=== PATIENT | male | born 1945 | race Caucasian/White ===

== ENCOUNTER → 2022-05-30 | Outpatient (CLI) | payer MEDICARE, SELFPAY ==
[2022-05-30 09:59] LABS: CRP < 2.90 mg/L (0.0-3.0); Free T3 3.3 pg/mL (2.18-3.98); LDH 211 U/L (87-241); T4 Free Direct 1.27 ng/dL (0.76-1.46); Thyroid Stim Hormone (TSH) 1.82 uIU/mL (0.358-3.74)
[2022-05-30 10:03] LABS: Absolute Lymphocyte Count 1.86 X10^3/uL (0.83-4.51); Absolute Neutrophil Count 3.2 X10^3/uL (2.0-7.7); Basophil# 0.06 X10^3/uL; Eosinophils% 5.1 % (0-5); Hematocrit 43.1 % (40-54); Hemoglobin 14.9 g/dL (13.0-16.5); Lymphocyte # 1.86 X10^3/ul (0.83-4.51); Lymphocyte % 31.5 % (19-41); Mean Corp Hgb Conc 34.6 g/dL (32-36); Mean Corpuscular Hgb 31.6 pg (27.0-32.0); Mean Corpuscular Volume 91.5 fL (80-94); Mean Platelet Vol. 10.9 fl (6.2-12.0); Monocyte# 0.46 X10^3/uL; Monocyte% 7.8 % (0-10); NRBC Flagged by Analyzer 0 % (0-5); Neutrophil # 3.21 X10^3/uL (2.7-7.7); Neutrophil % 54.4 % (47-70); Platelet Count 246 K/mm3 (150-450); RBC Distribution Width CV 12.2 % (11.6-14.6); RBC Distribution Width SD 40.7 fl (35.1-43.9); Red Blood Count 4.71 M/mm3 (4.6-6.2); White Blood Count 5.9 K/mm3 (4.4-11.0)
[2022-05-30 10:09] LABS: Erythrocyte Sedimentation Rate 24 mm/hr (0-20)
[2022-05-31 15:08] LABS: Anti-Centromere B Ab <0.2 AI (0.0-0.9); Anti-Chromatin <0.2 AI (0.0-0.9); Anti-Jo <0.2 AI (0.0-0.9); Anti-Scleroderma-70 AB <0.2 AI (0.0-0.9); RNP Ab 0.6 AI (0.0-0.9); SJOGREN'S Anti-SS-A test < 0.2 AI (0.0-0.9); SJOGREN'S Anti-SS-B test < 0.2 AI (0.0-0.9); Smith Ab <0.2 AI (0.0-0.9)
[2022-05-31 16:09] LABS: Endomysial Antibody IgA Negative (Negative)
[2022-05-31 16:28] LABS: Anti-dsDNA Ab <1 IU/mL (0-9)
[2022-05-31 16:30] LABS: Immunoglobulin A 368 mg/dL (61-437); t-Transglutaminase IgA <2 U/mL (0-3)
[2022-06-05 12:08] LABS: Albumin 3.8 g/dL (2.9-4.4); Alpha-1-Globulins 0.2 g/dL (0.0-0.4); Alpha-2-Globulins 0.9 g/dL (0.4-1.0); Cytoplasmic Ab (C-ANCA) <1:20 titer (Neg:<1:20); Immunoglobulin A 395 mg/dL (61-437); Immunoglobulin G 1105 mg/dL (603-1613); Immunoglobulin M 104 mg/dL (15-143); PROEL- TOTAL PROTEIN 7.3 g/dL (6.0-8.5)
[2022-06-07 13:37] LABS: Immunoglobulin E 685 IU/mL (6-495); Perinuclear Ab (P-ANCA) <1:20 titer (Neg:<1:20)
== END | disposition home or self-care (01) ==
PROVIDERS: PCP Physician Assistant; Referring Provider Internal Medicine Gastroenterology; Visit Provider Internal Medicine Gastroenterology
DX: R19.7 Diarrhea, unspecified (principal)
CPT/HCPCS: 36415; 82784; 82785; 83516; 83615; 84165; 84439; 84443; 84481; 85025; 85652; 86140; 86225; 86235; 86255; 86256; 86334

== ENCOUNTER → 2022-05-31 | Outpatient (CLI) | payer MEDICARE, SELFPAY ==
[2022-06-05 13:41] LABS: Pancreatic Elastase, Fecal > 500 (>200)
[2022-06-09 10:29] LABS: Calprotectin, Stool 134 ug/g (0-120); Fats, Neutral Normal (.); Fats, Total Normal (.)
== END | disposition home or self-care (01) ==
LOC: LAB 15:20
PROVIDERS: PCP Physician Assistant; Referring Provider Internal Medicine Gastroenterology; Visit Provider Internal Medicine Gastroenterology
DX: R19.7 Diarrhea, unspecified (principal); K58.0 Irritable bowel syndrome with diarrhea
CPT/HCPCS: 82653; 82705; 83630; 83993; 87493; 87506

== ENCOUNTER → 2022-06-15 | Outpatient (CLI) | payer MEDICARE, SELFPAY | END | disposition home or self-care (01) | PROVIDERS: PCP Physician Assistant; Visit Provider Internal Medicine Gastroenterology | DX: R19.7 Diarrhea, unspecified (principal) | CPT/HCPCS: 36415 ==

== ENCOUNTER → 2022-06-22 | Outpatient (CLI) | payer MEDICARE, SELFPAY ==
--- NOTE | 2022-06-22 08:14 | CT_ITS ---
STUDY: CT ABDOMEN AND PELVIS WITH CONTRAST REASON FOR EXAM: Male, 76 years old. Diarrhea RADIATION DOSAGE (If Supplied By Facility): CTDIvol = ( 21.42 ) mGy, DLP = ( 1173.85 ) mGycm TECHNIQUE: Transaxial images were obtained from the dome of the diaphragm to the symphysis pubis with oral contrast. Oral and amp; IV Readi-CAT and amp; 100mL Isovue-300 was administered. Sagittal and coronal images were reconstructed. Individualized dose optimization techniques were used for this CT. COMPARISON: None. FINDINGS: The visualized lung bases are unremarkable. The visualized portions of the heart are within normal limits. Liver is unremarkable aside from scattered simple cysts. No suspicious solid lesion. Normal gallbladder and extrahepatic biliary system. Normal spleen. Normal pancreas. Normal bilateral adrenal glands. No obstructive uropathy, or suspicious solid renal lesion, simple 1.5 cm right renal cyst. Normal visualized stomach. Normal small intestine. Normal colon. The appendix is visualized and appears normal. There is a normal appendix seen on coronal recon images 57 through 63 There is diffuse atherosclerotic calcification of the abdominal aorta, without a demonstrated aneurysm. Normal inferior vena cava. Normal retroperitoneum. Normal urinary bladder. Prostate is markedly enlarged and impinging upon the inferior bladder measuring 7.16 x 7.02 x 5.38 cm. Normal abdominal wall. There are diffuse degenerative changes of the visualized lumbar spine, and pelvis. Replaced right hip joint free of complication CT/Abdomen/Pelvis WITH Contrast IMPRESSION: No suspicious solid organ abnormality, simple hepatic and right renal cysts, no specific follow-up needed. No free intraperitoneal fluid, air, or suspicious adenopathy, normal appendix visualized Diffuse prostate enlargement impinging upon the inferior bladder and likely causing mild circumferential bladder wall thickening Electronically Signed: Aden Field MD at 10:23 EDT ,
[2022-06-22 08:46] LABS: CREATININE FINGERSTICK 0.9 mg/dL (0.70-1.30); EGFR FINGERSTICK > 60.0000 mL/min (>60)
== END | disposition home or self-care (01) ==
LOC: CT 08:13
PROVIDERS: PCP Physician Assistant; Referring Provider Internal Medicine Gastroenterology; Visit Provider Internal Medicine Gastroenterology
DX: R19.7 Diarrhea, unspecified (principal)
CPT/HCPCS: 74177; Q9967

== ENCOUNTER → 2022-08-28 | Outpatient (CLI) | payer MEDICARE, SELFPAY ==
[2022-08-28 09:56] LABS: Absolute Lymphocyte Count 1.87 X10^3/uL (0.83-4.51); Absolute Neutrophil Count 4.6 X10^3/uL (2.0-7.7); Basophil# 0.04 X10^3/uL; Basophil% 0.5 % (0-1); Eosinophil# 0.23 X10^3/uL; Eosinophils% 3.1 % (0-5); Hematocrit 43.8 % (40-54); Hemoglobin 14.4 g/dL (13.0-16.5); Lymphocyte # 1.87 X10^3/ul (0.83-4.51); Lymphocyte % 25.4 % (19-41); Mean Corp Hgb Conc 32.9 g/dL (32-36); Mean Corpuscular Hgb 30.6 pg (27.0-32.0); Mean Corpuscular Volume 93.2 fL (80-94); Mean Platelet Vol. 10.4 fl (6.2-12.0); Monocyte# 0.59 X10^3/uL; NRBC Flagged by Analyzer 0 % (0-5); Neutrophil # 4.61 X10^3/uL (2.7-7.7); Neutrophil % 62.7 % (47-70); Platelet Count 267 K/mm3 (150-450); RBC Distribution Width CV 12.2 % (11.6-14.6); White Blood Count 7.4 K/mm3 (4.4-11.0)
[2022-08-28 10:14] LABS: Erythrocyte Sedimentation Rate 39 mm/hr (0-20)
[2022-08-28 10:23] LABS: ALB/GLOB Ratio 0.8 RATIO (0.9-2.4); AST(SGOT) 35 U/L (15-37); Alanine Aminotransfer ALT/SGPT 45 U/L (16-61); Albumin, Serum 3.5 g/dL (3.2-5.0); Alkaline Phosphatase 70 U/L (45-117); Anion Gap 4 (5-15); BUN 15 mg/dL (7-18); BUN/Creat Ratio 15.4 RATIO (10-20); Calcium,Total 8.7 mg/dL (8.5-10.1); Chloride 108 mmol/L (98-107); Creatinine, Serum 0.97 mg/dL (0.70-1.30); EST Glomerular Filtration Rate 79 mL/min (>60); Est Glom Filt Rate - Afr Amer 96 mL/min (>60); Globulin 4.2 g/dL (2.2-4.2); Glucose 111 mg/dL (74-106); Potassium 3.9 mmol/L (3.5-5.1); Protein, Total 7.7 g/dL (6.4-8.2); Sodium Level 139 mmol/L (136-145)
== END | disposition home or self-care (01) ==
PROVIDERS: PCP Physician Assistant; Referring Provider Nurse Practitioner Adult Health; Visit Provider Nurse Practitioner Adult Health
DX: K50.90 Crohn's disease, unspecified, without complications (principal)
CPT/HCPCS: 36415; 80053; 85025; 85652

== ENCOUNTER 2022-11-01 06:45 | Day surgery (SDC) | payer MEDICARE, SELFPAY ==
[2022-11-01] VITALS (7 sets, daily range): BP systolic 98–156; BP diastolic 65–70; PULSE 63–76; RESP 16–18; TEMP 36–36.4; O2SAT 92–97; BMI 30.8
[2022-11-01] MEDS: Lactated Ringers 1,000 ML 15 ML IV (07:08)
--- NOTE | 2022-11-01 07:48 | PCM.HP.BLA ---
History and Physical Date of Admission: 11/01/22 ?76 M who presents to the office today for f/u diarrhea, newly diagnosed Crohn's disease. Accompanied by his Lindsay. Urgent diarrhea for more than a year. No nocturnal diarrhea. No melena or hematochezia. No associated pain or cramps. Diarrhea first thing in the morning, several bouts in the morning, and occas after eating. No unintentional weight loss. He is taking azathioprine 50 mg daily; had epigastric abdominal pain when he took 100 mg daily. Diarrhea pretty well controlled on the 50 mg dose. No longer needs Pepto Bismol. No prior EGD/colonoscopy. Has had negative Cologuard tests. 05/2022 ESR 24 H; IgE 685 H; normal CBC/LDH/CRP/TSH/SPEP/EDGAR/ANCA/celiac/fecal fats/fecal elastase 06/2022 workup: elevated stool calprotectin; negative enteric pathogens/C diff/lactoferrin; Suggestive of Crohn's Disease. Pattern is not conclusive for ? disease behavior risk stratification. 06/2022 CT/Abdomen/Pelvis WITH Contrast IMPRESSION: No suspicious solid organ abnormality, simple hepatic and right renal cysts, no specific follow-up needed. No free intraperitoneal fluid, air, or suspicious adenopathy, normal appendix visualized Diffuse prostate enlargement impinging upon the inferior bladder and likely causing mild circumferential bladder wall thickening ROS Const Constitutional: No fatigue ENT ENT: No difficulty swallowing Cardio Cardiology: Positive for leg pain with exertion Gastro GI: Positive for abdominal pain, change in bowel habits and diarrhea; No belching, bloating, change in stool character, coffee ground emesis, constipation, cramping, heartburn, difficulty swallowing, feeling full early, excessive flatus, incontinent of stools, Vomiting blood/hematemesis, Blood in stool, loose stools, Black,tarry stools, nausea/dyspepsia, pain with swallowing, vomiting or other Musc Musculoskeletal: Positive for joint pain, back pain, muscle cramps, muscle weakness, stiffness, Arthritis, restless legs and leg pain with exertion Skin Skin: No yellowing of the eye or itchy eyes Neuro Neurology: Positive for restless legs Psych Psychiatric: No anxiety and Positive for depression Endo Endocrine: No fatigue Aller/Imm Allergy/Immunologic: No itchy eyes Kervin/Lymp Hematologic/Lymphatic: No easy bleeding or easy bruising Exam Const General: cooperative and comfortable Nutritional Appearance: overweight Orientation: alert, awake and oriented x3 HENMT Head: normal to inspection Eyes Sclera: sclerae normal Resp Effort & Inspection: normal respiratory effort Skin General: no jaundice Neuro Gait: normal gait Quality Reporting Tobacco Screening ([facility] 138) Smoking Status: Former smoker Assessment and Plan Assessment and Plan (1) Crohn disease: ?Status:?Acute ?Plan: 76 yr old male with recent diagnosis Crohn's disease. I reviewed the biochemical w/u with pt and his . Dr Maribell started him on azathioprine, he tolerates 50 mg daily but had epigastric pain on 100 mg. Diarrhea has improved. Update labs today; I'll call them with lab results. He is scheduled for EGD and colonoscopy plus capsule endoscopy to be placed then f/u in office 2 wks after for discussion of biopsy results ? ? ? Orders: Orders Comprehensive Metabolic Profil 08/28/22 K50.90 - Crohn's disease, unspecified, without complications ? CBC W/Diff, Automated 08/28/22 K50.90 - Crohn's disease, unspecified, without complications ? Erythrocyte Sed Rate 08/28/22 K50.90 - Crohn's disease, unspecified, without complications ? I have examined the patient and the H&P has been reviewed. There are no clinical changes since date of exam.
--- NOTE | 2022-11-01 08:00 | COLBX_PTH ---
PATIENT: JIE HOLDER LOC: EN U#:[id number] AGE/SX: 76/M ROOM: RE11/01/[address]: Dr. Wally Reyna DO : 1945 BED: DIS: 11/01/2022 SPEC #: [id number] RECD: 11/01/22 11:31 STATUS: ELENA DANII #: [id number] KEITH: 11/01/22 08:[address]: Wally Reyna DEPT: SURGICAL PATHOLOGY RECD BY: Bhavna Dwyer ENTERED: 11/01/22 13:19 SP TYPE: COLON BX OTHR DR: MILKA Nunez Tissues: A - Cecum, NOS B - Ileum, NOS C - Transverse colon D - COLON BIOPSY E - Sigmoid colon biopsy Procedures: Surgery Specimen Level IV HEADER OPERATION: Colonoscopy, [place] [place] pill cam placement, biopsy PRE-OP DIAGNOSIS: Crohn?s disease TISSUE SUBMITTED: A ? Cecal polyp biopsy, B ? Terminal ileum biopsy, C ? Transverse colon polyp biopsy, D ? Splenic flexure polyp biopsy, E ? Sigmoid polyp biopsy MICROSCOPIC DIAGNOSIS A. Cecal polyp, biopsy: Tubular adenoma. B. Terminal ileum, biopsy: No pathologic change. C. Transverse colon polyp, biopsy: Polypoid fragment of benign colonic mucosa. See comment. D. Colonic polyp at splenic flexure, biopsy: Tubular adenoma. E. Sigmoid colon polyp, biopsy: Consistent with inflammatory polyp. AM:germain 11/02/2022 COMMENT C. Neither hyperplastic nor adenomatous change is identified. Clinical correlation is suggested. MICROSCOPIC DESCRIPTION Slides are reviewed. GROSS DESCRIPTION A - Received in fixative is one container labeled with the patient's name and designated cecal polyp biopsy. The specimen consists of one irregular fragment of light delacruz soft tissue that measures 0.3 x 0.3 x 0.1 cm. The specimen is totally submitted in one cassette. B - Received in fixative is one container labeled with the patient's name and designated terminal ileum. The specimen consists of one irregular fragment of light delacruz soft tissue that measures 0.3 x 0.3 x 0.1 cm. The specimen is totally submitted in one cassette. C - Received in fixative is one container labeled with the patient's name and designated transverse colon polyp biopsy. The specimen consists of one irregular fragment of light delacruz soft tissue that measures 0.3 x 0.3 x 0.1 cm. The specimen is totally submitted in one cassette. D - Received in fixative is one container labeled with the patient's name and designated splenic flexure polyp biopsy. The specimen consists of one irregular fragment of light delacruz soft tissue that measures 0.4 x 0.4 x 0.1 cm. The specimen is totally submitted in one cassette. E - Received in fixative is one container labeled with the patient's name and designated sigmoid polyp biopsy. The specimen consists of one irregular fragment of light delacruz soft tissue that measures 0.3 x 0.3 x 0.1 cm. The specimen is totally submitted in one cassette. / SJ:rg 11/01/2022 TC:5 CPT: 92755 x5
--- NOTE | 2022-11-01 08:39 | OP.EGD_ITS ---
Patient Name: Clark De Leon Procedure Date: 11/01/2022 7:49 AM Date of : 1945 Age: 76 Procedure: Upper GI endoscopy Indications: Epigastric abdominal pain Providers: Wally Reyna DO Referring MD: Wally Reyna DO Medicines: Monitored Anesthesia Care Patient Profile: This is a 76 year old male. Refer to note in patient chart for documentation of history and physical. Patient has symptoms. Complications: No immediate complications. Procedure: Pre-Anesthesia Assessment: - Prior to the procedure, a History and Physical was performed, and patient medications and allergies were reviewed. The risks and benefits of the procedure and the sedation options and risks were discussed with the patient. All questions were answered and informed consent was obtained. Patient identification and proposed procedure were verified by the physician in the pre-procedure area. Mental Status Examination: alert and oriented. Airway Examination: normal oropharyngeal airway and neck mobility. Respiratory Examination: clear to auscultation. CV Examination: normal. Prophylactic Antibiotics: The patient does not require prophylactic antibiotics. Prior Anticoagulants: The patient has taken no previous anticoagulant or antiplatelet agents. ASA Grade Assessment: II - A patient with mild systemic disease. After reviewing the risks and benefits, the patient was deemed in satisfactory condition to undergo the procedure. The anesthesia plan was to use monitored anesthesia care (MAC). Immediately prior to administration of medications, the patient was re-assessed for adequacy to receive sedatives. The heart rate, respiratory rate, oxygen saturations, blood pressure, adequacy of pulmonary ventilation, and response to care were monitored throughout the procedure. The physical status of the patient was re-assessed after the procedure. After obtaining informed consent, the endoscope was passed under direct vision. Throughout the procedure, the patient's blood pressure, pulse, and oxygen saturations were monitored continuously. The gastroscope was introduced through the mouth, and advanced to the second part of duodenum. The upper GI endoscopy was accomplished without difficulty. The patient tolerated the procedure well. Scope In: 8:05:24 AM Scope Out: 8:09:21 AM Total Procedure Duration Time 0 hours 3 minutes 57 seconds Findings: The examined esophagus was normal. A medium-sized hiatal hernia was present. No gross lesions were noted in the second portion of the duodenum. Using the endoscope, the video capsule enteroscope was advanced into the first portion of the duodenum. The video capsule was positioned 40 cm from the incisors. Impression: - Normal esophagus. - Medium-sized hiatal hernia. - No gross lesions in the second portion of the duodenum. - Successful completion of the Video Capsule Enteroscope placement. - No specimens collected. Recommendation: - Discharge patient to home. - Resume previous diet. - Continue present medications. Procedure Code(s): --- Professional --- 26036, Esophagogastroduodenoscopy, flexible, transoral; diagnostic, including collection of specimen(s) by brushing or washing, when performed (separate procedure) CPT copyright 2017 [employer]. All rights reserved. The codes documented in this report are preliminary and upon web operations lead review may be revised to meet current compliance requirements. Wally Reyna DO 11/01/2022 8:38:52 AM This report has been signed electronically. Number of Addenda: 0 Note Initiated On: 11/01/2022 7:49 AM
--- NOTE | 2022-11-01 08:39 | OP.CCLET_ITS ---
11/01/2022 Aaron Nunez Re : Upper GI endoscopy procedure for Clark Palafoxr Yumiko This procedure was performed on October. My impressions and recommendations are as follows: Impressions : - Normal esophagus. - Medium-sized hiatal hernia. - No gross lesions in the second portion of the duodenum. - Successful completion of the Video Capsule Enteroscope placement. - No specimens collected. Recommendations : - Discharge patient to home. - Resume previous diet. - Continue present medications. My findings are described in the full procedure note, which is enclosed. If I can be of further assistance, please feel free to contact me at . Sincerely, Wally Reyna, 11/01/2022 8:38:52 AM This report has been signed electronically.
--- NOTE | 2022-11-01 08:44 | OP.CCLET_ITS ---
11/01/2022 Aaron Nunez Re : Colonoscopy procedure for Clark De Leon Dear Yumiko This procedure was performed on October. My impressions and recommendations are as follows: Impressions : - Diverticulosis in the recto-sigmoid colon, in the sigmoid colon and in the descending colon. - Four 1 to 2 mm polyps in the sigmoid colon, at the splenic flexure, in the transverse colon and in the cecum, removed with a cold snare. Resected and retrieved. - Congested mucosa in the terminal ileum. Biopsied. Recommendations : - Discharge patient to home. - Resume previous diet. - Continue present medications. - Await pathology results. - Repeat colonoscopy in 2 years for surveillance. My findings are described in the full procedure note, which is enclosed. If I can be of further assistance, please feel free to contact me at . Sincerely, Wally Reyna, 11/01/2022 8:43:49 AM This report has been signed electronically.
--- NOTE | 2022-11-01 08:44 | OP.COLON_ITS ---
Patient Name: Clark De Leon Procedure Date: 11/01/2022 8:09 AM Date of : 1945 Age: 76 Procedure: Colonoscopy Indications: Chronic diarrhea, Suspected Crohn's disease of the small bowel Providers: Wally Reyna DO Referring MD: Wally Reyna DO Medicines: Monitored Anesthesia Care Patient Profile: This is a 76 year old male. Refer to note in patient chart for documentation of history and physical. Patient has symptoms. Last Colonoscopy: date unknown. Unable to locate last colonoscopy report. Complications: No immediate complications. Procedure: Pre-Anesthesia Assessment: - Prior to the procedure, a History and Physical was performed, and patient medications and allergies were reviewed. The risks and benefits of the procedure and the sedation options and risks were discussed with the patient. All questions were answered and informed consent was obtained. Patient identification and proposed procedure were verified by the physician in the pre-procedure area. Mental Status Examination: alert and oriented. Airway Examination: normal oropharyngeal airway and neck mobility. Respiratory Examination: clear to auscultation. CV Examination: normal. Prophylactic Antibiotics: The patient does not require prophylactic antibiotics. Prior Anticoagulants: The patient has taken no previous anticoagulant or antiplatelet agents. ASA Grade Assessment: II - A patient with mild systemic disease. After reviewing the risks and benefits, the patient was deemed in satisfactory condition to undergo the procedure. The anesthesia plan was to use monitored anesthesia care (MAC). Immediately prior to administration of medications, the patient was re-assessed for adequacy to receive sedatives. The heart rate, respiratory rate, oxygen saturations, blood pressure, adequacy of pulmonary ventilation, and response to care were monitored throughout the procedure. The physical status of the patient was re-assessed after the procedure. After I obtained informed consent, the scope was passed under direct vision. Throughout the procedure, the patient's blood pressure, pulse, and oxygen saturations were monitored continuously. The Colonoscope was introduced through the anus and advanced to the terminal ileum. The colonoscopy was performed without difficulty. The patient tolerated the procedure well. The quality of the bowel preparation was good. Scope In: 8:14:01 AM Scope Withdrawal Time 0 hours 10 minutes 10 seconds Scope Out: 8:26:48 AM Total Procedure Duration Time 0 hours 12 minutes 47 seconds Findings: The perianal and digital rectal examinations were normal. A few medium-mouthed diverticula were found in the recto-sigmoid colon, sigmoid colon and descending colon. Four sessile polyps were found in the sigmoid colon, splenic flexure, transverse colon and cecum. The polyps were 1 to 2 mm in size. These polyps were removed with a cold snare. Resection and retrieval were complete. Verification of patient identification for the specimen was done. Estimated blood loss was minimal. A patchy area of the terminal ileum was congested. Biopsies were taken with a cold forceps for histology. Verification of patient identification for the specimen was done. Estimated blood loss was minimal. Non-bleeding internal hemorrhoids were found during retroflexion. The hemorrhoids were Grade I (internal hemorrhoids that do not prolapse). Impression: - Diverticulosis in the recto-sigmoid colon, in the sigmoid colon and in the descending colon. - Four 1 to 2 mm polyps in the sigmoid colon, at the splenic flexure, in the transverse colon and in the cecum, removed with a cold snare. Resected and retrieved. - Congested mucosa in the terminal ileum. Biopsied. Recommendation: - Discharge patient to home. - Resume previous diet. - Continue present medications. - Await pathology results. - Repeat colonoscopy in 2 years for surveillance. Procedure Code(s): --- Professional --- 65517, Colonoscopy, flexible; with removal of tumor(s), polyp(s), or other lesion(s) by snare technique 41231, 59, Colonoscopy, flexible; with biopsy, single or multiple CPT copyright 2017 [place] [employer]. All rights reserved. The codes documented in this report are preliminary and upon it solutions sales consultant review may be revised to meet current compliance requirements. Wally Reyna DO 11/01/2022 8:43:49 AM This report has been signed electronically. Number of Addenda: 0 Note Initiated On: 11/01/2022 8:09 AM
== END 2022-11-01 09:36 | disposition home or self-care (01) ==
LOC: EN 06:48 → AC 06:48
PROVIDERS: PCP Physician Assistant; Referring Provider Physician Assistant; Visit Provider Internal Medicine Gastroenterology
PROC: 0DJD8ZZ Inspection of Lower Intestinal Tract, Via Natural or Artificial Opening Endoscopic (ICD-10-PCS; CPT 45378; principal; 2022-11-01 07:55)
DX: K50.90 Crohn's disease, unspecified, without complications (principal); K44.9 Diaphragmatic hernia without obstruction or gangrene; K64.0 First degree hemorrhoids; K21.9 Gastro-esophageal reflux disease without esophagitis; K57.30 Diverticulosis of large intestine without perforation or abscess without bleeding; D12.0 Benign neoplasm of cecum; D12.3 Benign neoplasm of transverse colon; Z87.891 Personal history of nicotine dependence; I10 Essential (primary) hypertension; Z79.899 Other long term (current) drug therapy
CPT/HCPCS: 45385; 45380; 43235; 88305; J7120; J2405

== ENCOUNTER → 2022-11-16 | Outpatient (CLI) | payer MEDICARE, SELFPAY ==
[2022-11-16 16:05] LABS: Absolute Lymphocyte Count 1.95 X10^3/uL (0.83-4.51); Absolute Neutrophil Count 3.2 X10^3/uL (2.0-7.7); Basophil# 0.05 X10^3/uL; Basophil% 0.9 % (0-1); Eosinophil# 0.18 X10^3/uL; Eosinophils% 3.1 % (0-5); Hematocrit 43.8 % (40-54); Hemoglobin 14.8 g/dL (13.0-16.5); Lymphocyte # 1.95 X10^3/ul (0.83-4.51); Lymphocyte % 33.7 % (19-41); Mean Corp Hgb Conc 33.8 g/dL (32-36); Mean Corpuscular Hgb 31.6 pg (27.0-32.0); Mean Corpuscular Volume 93.4 fL (80-94); Mean Platelet Vol. 10.5 fl (6.2-12.0); Monocyte# 0.43 X10^3/uL; Monocyte% 7.4 % (0-10); NRBC Flagged by Analyzer 0 % (0-5); Neutrophil # 3.16 X10^3/uL (2.7-7.7); Neutrophil % 54.6 % (47-70); Platelet Count 227 K/mm3 (150-450); RBC Distribution Width CV 12.4 % (11.6-14.6); RBC Distribution Width SD 42.3 fl (35.1-43.9); Red Blood Count 4.69 M/mm3 (4.6-6.2); White Blood Count 5.8 K/mm3 (4.4-11.0)
[2022-11-16 16:39] LABS: Erythrocyte Sedimentation Rate 7 mm/hr (0-20)
[2022-11-16 17:12] LABS: AST(SGOT) 31 U/L (15-37); Alanine Aminotransfer ALT/SGPT 43 U/L (16-61); Albumin, Serum 3.6 g/dL (3.2-5.0); Alkaline Phosphatase 68 U/L (45-117); Anion Gap 4 (5-15); BUN 16 mg/dL (7-18); BUN/Creat Ratio 16.8 RATIO (10-20); CRP < 2.90 mg/L (0.0-3.0); Chloride 108 mmol/L (98-107); Creatinine, Serum 0.95 mg/dL (0.70-1.30); EST Glomerular Filtration Rate 81 mL/min (>60); Est Glom Filt Rate - Afr Amer 99 mL/min (>60); Globulin 3.7 g/dL (2.2-4.2); Glucose 88 mg/dL (74-106); Potassium 3.5 mmol/L (3.5-5.1); Protein, Total 7.3 g/dL (6.4-8.2); Sodium Level 140 mmol/L (136-145)
== END | disposition home or self-care (01) ==
LOC: LAB 14:55
PROVIDERS: PCP Physician Assistant; Referring Provider Nurse Practitioner Adult Health; Visit Provider Nurse Practitioner Adult Health
DX: K50.90 Crohn's disease, unspecified, without complications (principal)
CPT/HCPCS: 36415; 80053; 85025; 85652; 86140

== ENCOUNTER → 2022-11-20 | Outpatient (CLI) | payer MEDICARE, SELFPAY ==
[2022-11-24 08:59] LABS: Calprotectin, Stool 71 ug/g (0-120)
== END | disposition home or self-care (01) ==
LOC: LABSPEC 10:21
PROVIDERS: PCP Physician Assistant; Referring Provider Nurse Practitioner Adult Health; Visit Provider Nurse Practitioner Adult Health
DX: K50.90 Crohn's disease, unspecified, without complications (principal)
CPT/HCPCS: 83630; 83993

== ENCOUNTER → 2023-05-23 | Outpatient (CLI) | payer MEDICARE, SELFPAY ==
[2023-05-23 17:05] LABS: Absolute Lymphocyte Count 1.93 X10^3/uL (0.83-4.51); Absolute Neutrophil Count 3.6 X10^3/uL (2.0-7.7); Basophil# 0.05 X10^3/uL; Basophil% 0.8 % (0-1); Eosinophils% 3.2 % (0-5); Hematocrit 41.7 % (40-54); Hemoglobin 14.3 g/dL (13.0-16.5); Lymphocyte # 1.93 X10^3/ul (0.83-4.51); Lymphocyte % 30.5 % (19-41); Mean Corp Hgb Conc 34.3 g/dL (32-36); Mean Corpuscular Hgb 31.3 pg (27.0-32.0); Mean Corpuscular Volume 91.2 fL (80-94); Mean Platelet Vol. 10.5 fl (6.2-12.0); Monocyte# 0.55 X10^3/uL; Monocyte% 8.7 % (0-10); NRBC Flagged by Analyzer 0 % (0-5); Neutrophil # 3.57 X10^3/uL (2.7-7.7); Neutrophil % 56.5 % (47-70); Platelet Count 260 K/mm3 (150-450); RBC Distribution Width CV 12.8 % (11.6-14.6); RBC Distribution Width SD 42.2 fl (35.1-43.9); Red Blood Count 4.57 M/mm3 (4.6-6.2); White Blood Count 6.3 K/mm3 (4.4-11.0)
[2023-05-23 17:14] LABS: Erythrocyte Sedimentation Rate 28 mm/hr (0-20)
[2023-05-23 17:37] LABS: ALB/GLOB Ratio 0.9 RATIO (0.9-2.4); AST(SGOT) 34 U/L (15-37); Alanine Aminotransfer ALT/SGPT 45 U/L (16-61); Albumin, Serum 3.5 g/dL (3.2-5.0); Alkaline Phosphatase 90 U/L (45-117); Anion Gap 5 (5-15); BUN 14 mg/dL (7-18); BUN/Creat Ratio 15.2 RATIO (10-20); CRP < 2.90 mg/L (0.0-3.0); Calcium,Total 8.5 mg/dL (8.5-10.1); Chloride 111 mmol/L (98-107); Creatinine, Serum 0.92 mg/dL (0.70-1.30); EST Glomerular Filtration Rate 85 mL/min (>60); Est Glom Filt Rate - Afr Amer 102 mL/min (>60); Globulin 3.9 g/dL (2.2-4.2); Glucose 100 mg/dL (74-106); Potassium 3.6 mmol/L (3.5-5.1); Protein, Total 7.4 g/dL (6.4-8.2); Sodium Level 141 mmol/L (136-145)
[2023-05-30 00:07] LABS: Beef <0.10 kU/L (Class 0); Chocolate <0.10 kU/L (Class 0); Corn 0.15 kU/L (Class 0/I); Egg, Whole <0.10 kU/L (Class 0); Milk (Cow) <0.10 kU/L (Class 0); Peanut <0.10 kU/L (Class 0); Pork <0.10 kU/L (Class 0); Soybean 0.19 kU/L (Class 0/I); Wheat 0.16 kU/L (Class 0/I)
== END | disposition home or self-care (01) ==
LOC: LAB 16:23
PROVIDERS: PCP Physician Assistant; Referring Provider Internal Medicine Gastroenterology; Visit Provider Internal Medicine Gastroenterology
DX: K50.90 Crohn's disease, unspecified, without complications (principal)
CPT/HCPCS: 36415; 80053; 85025; 85652; 86003; 86005; 86140

== ENCOUNTER 2024-04-01 08:26 | Observation (INO) | payer MEDICARE, SELFPAY ==
[2024-04-01] VITALS (14 sets, daily range): BP systolic 67–125; BP diastolic 55–91; PULSE 71–95; RESP 16–17; TEMP 35.9–36.8; O2SAT 94–99; BMI 31.2; BMI 31.3
--- NOTE | 2024-04-01 | PROS_PTH ---
PATIENT: JIE HOLDER LOC: MS3 U#:[id number] AGE/SX: 78/M ROOM: CT310 RE04/01/[address]: Dr. Iam Macias MD : 1945 BED: 1 DIS: 04/02/2024 SPEC #: [id number] RECD: 04/01/24 13:15 STATUS: ELENA FOY #: [id number] KEITH: 04/01/24 00:[address]: Iam Macias DEPT: SURGICAL PATHOLOGY RECD BY: Ritchie Almanzar ENTERED: 04/01/24 13:16 SP TYPE: TURP OTHR DR: MILKA Nunez Tissues: Prostate, NOS Procedures: Surgery Specimen Level IV HEADER OPERATION: Transurethral resection prostate PRE-OP DIAGNOSIS: Benign prostatic hyperplasia with lower urinary tract symptoms, other retention of urine, elevated PSA TISSUE SUBMITTED: Prostate chips MICROSCOPIC DIAGNOSIS Prostate, transurethral resection: Benign nodule hyperplasia, glandular and stromal types. Chronic inflammation with focal acute inflammation. AM/ 04/02/2024 MICROSCOPIC DESCRIPTION Slides are reviewed. GROSS DESCRIPTION Received is one container labeled with the patient's name and designated prostate tissue. The specimen consists of multiple irregular fragments of pink-delacruz, rubbery, soft tissue that in aggregate weigh 45.1 gm and measure in aggregate 8.0 x 8.0 x 2.6 cm. Manager Science portions are submitted in ten cassettes. / 04/01/2024 TC:2 CPT: 91476
--- NOTE | 2024-04-01 06:27 | EKG12_ITS ---
Test Reason : PREOP Blood Pressure : / mmHG Vent. Rate : 080 BPM Atrial Rate : 080 BPM P-R Int : 202 ms QRS Dur : 098 ms QT Int : 374 ms P-R-T Axes : 004 -16 -02 degrees QTc Int : 431 ms Normal sinus rhythm Minimal voltage criteria for LVH, may be normal variant ( R in aVL ) Borderline ECG When compared with ECG of 08-FEB-2006 05:54, Fusion complexes are no longer Present Premature ventricular complexes are no longer Present Inverted T waves have replaced nonspecific T wave abnormality in Inferior leads Confirmed by ZACKERY MONCADA, KHRIS ([id number]), manager functional SNEHA ALMARAZ ([id number]) on 04/03/2024 9:42:15 AM Referred By: Iam Macias Confirmed By:NAOMIE VIZCARRA MD
--- NOTE | 2024-04-01 08:28 | PRE.ANES_ITS ---
ASA Classification* ASA Classification ASA Classification: 3 Assessment & Plan Anesthesia* Anesthesia Assessment Anesthesia Assessment: Discussed sedation and/or anesthesia options, risks, benefits, and alternatives with patient/parents/legal guardian/POA. Questions invited. The patient/parents/legal guardian/POA seems to understand and agrees to proceed with anesthesia plan. Reviewed the physical assessment, medical history, allergy history and patient home medications list prior to surgery/procedure/anesthetic and documented any changes. Performed airway and anesthesia risk assessments. Anesthesia Type Anesthesia Type: General Anesthesia Focused Assessment* Temperature: 97.2 F Pulse Rate: 82 Blood Pressure: 125/59 Respiratory Rate: 17 Pulse Ox: 95 Airway Assessment Mouth opens: >3 cm Mallampati Score: II Focused Labs Anesthesia Preop lab: CBC WBC 6.3 K/mm3 (4.4-11.0) 05/23/23 16:25 RBC 4.57 M/mm3 (4.6-6.2) L 05/23/23 16:25 Hgb 14.3 g/dL (13.0-16.5) 05/23/23 16:25 Hct 41.7 % (40-54) 05/23/23 16:25 Plt Count 260 K/mm3 (150-450) 05/23/23 16:25 CHEMISTRY Potassium 3.6 mmol/L (3.5-5.1) 05/23/23 16:25 Sodium 141 mmol/L (136-145) 05/23/23 16:25 BUN 14 mg/dL (7-18) 05/23/23 16:25 Creatinine 0.92 mg/dL (0.70-1.30) 05/23/23 16:25 Glucose 100 mg/dL (74-106) 05/23/23 16:25 TSH 1.82 uIU/mL (0.358-3.74) 05/30/22 08:43 COAG Pre-Assessment Diagnosis/Proposed Procedure Planned Operative Procedure(s): TURP Anesthesia History Anesthesia History - customer response representative: Anesthesia History - customer response representative Hx Hospitalization No 03/27/24 14:51 Any Problems With Anesthesia No 03/27/24 14:51 Cholinesterase deficiency No 03/27/24 14:51 You/Your Family Experience No 03/27/24 14:51 fever (hyperthermia) with Relationship Recent Exposure to Contagious No 04/01/24 06:44 Disease Does patient have nerve No 03/27/24 14:51 stimulator Patient instructed to have device shut off --Does patient have Pacemaker No 04/01/24 06:44 or ICD? When Was Last Pacemaker Check QUESTION #4 FULL TEXT: You/Your Family Experience fever (hyperthermia) with Anesthesia Last Oral Intake Last Oral intake: Last Oral Intake NPO since Meds taken in AM with sips of water? Meds patient instructed to take am of surgery PONV PONV - customer response representative: PONV - customer response representative Female No 03/27/24 14:51 HX of Motion Sickness No 03/27/24 14:51 HX of N/V After Surgery No 03/27/24 14:51 Non-Smoker Yes 03/27/24 14:51 Duration of Surgery greater Yes 03/27/24 14:51 than 60 minutes Number of Risk Factors 2 03/27/24 14:51 PONV Score Moderate Risk 03/27/24 14:51 Height & Weight Height & Weight: Anesthesia: Height & Weight Height 5 ft 9 in 04/01/24 06:44 Weight: 96 kg 04/01/24 06:44 Body Mass Index (BMI) 31.2 04/01/24 06:44 Respiratory Assessment Respiratory Assessment - customer response representative: Respiratory Tract Infection Hx - customer response representative Hx Respiratory Tract Infection No 03/27/24 14:51 STOP Sleep Apnea STOP Sleep Apnea - customer response representative: STOP Sleep Apnea - customer response representative Hx Hypertension Yes: CONTROLLED ON MED 03/27/24 14:51 Hx Sleep Apnea No 03/27/24 14:51 CPAP BIPAP Do you snore loudly (louder Yes 03/27/24 14:51 than talking or can be heard Do you often feel tired/ No 03/27/24 14:51 fatigued/ sleepy during daytime? Has anyone observed you stop No 03/27/24 14:51 breathing during sleep? STOP Results Positive 03/27/24 14:51 QUESTION #5 FULL TEXT : Do you snore loudly (louder than talking or can be heard through closed doors)? 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 Specify any problems Hx of Preganancy in last 3 N/A 03/27/24 14:51 Months Nurse Filling Out Transfusion DSCHRIBER 03/27/24 14:51 & Questions: Date: 03/27/24 03/27/24 14:51 Time: 14:52 03/27/24 14:51 Patient unable to answer at this time (ie. confused, unrespo /Reproduction History /Reproductive History - customer response representative: /Reproductive Hx- customer response representative Hx Now Gestational Age (in weeks): EDC: Hx Hx Para Hx Section SAB Active Medications Active Medications: Current Medications Generic Name Dose Route Start Last Admin Trade Name Freq PRN Reason Stop Dose Admin Acetaminophen 325 mg 04/01/24 08:26 Acetaminophen 325 Mg Tablet PO Q6H PRN PRN Pain Score 1-10 Al Hydrox/Mg Hydrox/Simethicone 30 ml 04/01/24 08:26 Mag /Aluminum/Simeth Wch Udc 30 Ml Oral.Susp PO Q4H PRN PRN HEARTBURN Docusate Sodium 200 mg 04/01/24 10:00 Docusate Sodium 100 Mg Capsule PO BID SHALINI Cefazolin Sodium 2 gm/ Sodium 110 mls @ 150 mls/hr 04/01/24 08:50 Chloride IV 04/01/24 09:33 PREOP ONE Lactated Ringer's 1,000 mls @ 15 mls/hr 04/01/24 06:30 IV .Q48H SHALINI Sodium Chloride 1,000 mls @ 125 mls/hr 04/01/24 08:30 IV .Q8H SHALINI Ciprofloxacin 400 mg in 200 mls @ 200 mls/hr 04/01/24 10:00 Cipro IV 04/01/24 22:59 Q12 SHALINI Ketorolac Tromethamine 15 mg 04/01/24 08:26 Ketorolac 15 Mg/Ml Vial IV 04/03/24 08:27 Q6H PRN PRN Pain Score 1-10 Metoclopramide HCl 10 mg 04/01/24 08:26 Metoclopramide 10 Mg/2 Ml Vial IV Q8H PRN PRN NAUSEA/VOMITING Morphine Sulfate 1 mg 04/01/24 08:26 Morphine 2 Mg/Ml Syringe IV Q2H PRN PRN Pain Score 6-10 Ondansetron HCl 4 mg 04/01/24 08:26 Ondansetron 4 Mg/2 Ml Vial IV Q8H PRN NAUSEA/VOMITING Oxycodone HCl 5 - 10 mg 04/01/24 08:26 Oxycodone 5 Mg Tablet PO Q6H PRN PRN Pain Score 4-10 PFSH Medical History Loss of hearing Indwelling urethral catheter present Prostate disease Restless legs History of Crohn's disease Wears dentures Wears glasses Arthritis High cholesterol Back pain Gastric reflux Former smoker Leg cramps History of echocardiogram History of stress test Cardiology follow-up encounter BPH (benign prostatic hyperplasia) Unspecified osteoarthritis, unspecified site CAD (coronary artery disease) HTN (hypertension) Pure hyperglyceridemia Obesity, unspecified B12 deficiency Fecal incontinence Home Medications ?Medication ?Instructions ?Recorded ?Last Taken ?Type hydrochlorothiazide 25 mg tablet 12.5 mg PO DAILY 04/02/22 Unknown History losartan 25 mg tablet 25 mg PO DAILY 04/02/22 Unknown History lovastatin 40 mg tablet 40 mg PO QHS 04/02/22 11/01/22 History metoprolol tartrate 25 mg tablet 25 mg PO DAILY 04/02/22 11/01/22 History omeprazole 40 mg capsule,delayed 40 mg PO DAILY 04/02/22 Unknown History release omega-3 fatty acids 1,000 mg PO DAILY 10/30/22 03/27/24 History pyridoxine (vitamin B6) 50 mg 50 mg PO DAILY 10/30/22 Unknown History capsule (Vitamin B-6) azathioprine 50 mg tablet 50 mg PO DAILY crohn's #90 tabs 10/07/23 Unknown Rx cephalexin 500 mg capsule 500 mg PO BID 03/27/24 Unknown History fluticasone propionate 50 2 spray intranasal DAILY PRN PRN 03/27/24 Unknown History mcg/actuation nasal allergy symptoms spray,suspension Allergy/AdvReac Type Severity Reaction Status Date / Time No Known Allergies Allergy Verified 03/27/24 14:43 Surgical History Hx of colonoscopy Hx of bilateral cataract extraction History of carpal tunnel surgery of left wrist History of cardiac catheterization History of coronary artery stent placement H/O total hip arthroplasty Social History Smoking Status: Former smoker alcohol intake: current alcohol intake frequency: a few times a week Review of Systems (Anesthesia) ROS Narrative System reviewed and no additional complaints, except as documented.
--- NOTE | 2024-04-01 08:29 | HP.PCM_ITS ---
HPI - General General Date of Service: 04/01/24 Chief Complaint: Urinary retention HPI Narrative JIE HOLDER, is a 78 M who presents for transurethral resection of the prostate for urinary retention [facility] Medical History Loss of hearing Indwelling urethral catheter present Prostate disease Restless legs History of Crohn's disease Wears dentures Wears glasses Arthritis High cholesterol Back pain Gastric reflux Former smoker Leg cramps History of echocardiogram History of stress test Cardiology follow-up encounter BPH (benign prostatic hyperplasia) Unspecified osteoarthritis, unspecified site CAD (coronary artery disease) HTN (hypertension) Pure hyperglyceridemia Obesity, unspecified B12 deficiency Fecal incontinence Home Medications ?Medication ?Instructions ?Recorded ?Last Taken ?Type hydrochlorothiazide 25 mg tablet 12.5 mg PO DAILY 04/02/22 Unknown History losartan 25 mg tablet 25 mg PO DAILY 04/02/22 Unknown History lovastatin 40 mg tablet 40 mg PO QHS 04/02/22 11/01/22 History metoprolol tartrate 25 mg tablet 25 mg PO DAILY 04/02/22 11/01/22 History omeprazole 40 mg capsule,delayed 40 mg PO DAILY 04/02/22 Unknown History release omega-3 fatty acids 1,000 mg PO DAILY 10/30/22 03/27/24 History pyridoxine (vitamin B6) 50 mg 50 mg PO DAILY 10/30/22 Unknown History capsule (Vitamin B-6) azathioprine 50 mg tablet 50 mg PO DAILY crohn's #90 tabs 10/07/23 Unknown Rx cephalexin 500 mg capsule 500 mg PO BID 03/27/24 Unknown History fluticasone propionate 50 2 spray intranasal DAILY PRN PRN 03/27/24 Unknown History mcg/actuation nasal allergy symptoms spray,suspension Allergy/AdvReac Type Severity Reaction Status Date / Time No Known Allergies Allergy Verified 03/27/24 14:43 Surgical History Hx of colonoscopy Hx of bilateral cataract extraction History of carpal tunnel surgery of left wrist History of cardiac catheterization History of coronary artery stent placement H/O total hip arthroplasty Social History Smoking Status: Former smoker alcohol intake: current alcohol intake frequency: a few times a week Vital Signs Vital Signs Vital Signs: 04/01/24 06:44 04/01/24 06:44 Temperature 97.2 F L Temperature Source Temporal Pulse Rate 82 Respiratory Rate 17 Respiratory Pattern Normal Blood Pressure 125/59 H Blood Pressure Mean 81 Blood Pressure Source Monitor Blood Pressure Position Semi-Fowlers Blood Pressure Location Left Arm Pulse Ox 95 Oxygen Delivery Method Room Air Weight Weight: 96 kg Body Mass Index (BMI) 31.2
--- NOTE | 2024-04-01 08:29 | PCM.DC ---
Discharge Instructions Diet Discharge Diet: No restrictions, Light diet - advance as tolerated and Soft diet Activity Discharge Activity: May Not Drive and May Shower Lifting Restrictions: no lifting x 6 weeks Follow Up Care Please Follow Up With: Iam Macias MD When: 2 weeks Test Results: Test results from this visit will be discussed in further detail at your follow-up appointment, if applicable. Discharge Plan Admission Primary Reason for Your Visit: turp Attending Provider: Iam Macias Primary Care Provider: Vitor Calderon Instructions Print Language: Barbadian Discharge Orders/Prescriptions Prescriptions: Continued omeprazole 40 mg capsule,delayed release(DR/EC) 40 mg PO DAILY lovastatin 40 mg tablet 40 mg PO QHS hydrochlorothiazide 25 mg tablet 12.5 mg PO DAILY losartan 25 mg tablet 25 mg PO DAILY metoprolol tartrate 25 mg tablet 25 mg PO DAILY omega-3 fatty acids Capsule 1,000 mg PO DAILY Vitamin B-6 50 mg Capsule 50 mg PO DAILY cephalexin 500 mg capsule 500 mg PO BID fluticasone propionate 50 mcg/actuation spray,suspension 2 spray INTRANASAL DAILY PRN PRN (Reason: allergy symptoms) azathioprine 50 mg tablet 50 mg PO DAILY Qty: 90 3RF Discontinued tamsulosin 0.4 mg capsule 0.4 mg PO QHS phenazopyridine [Pyridium] 100 mg tablet 100 mg PO DAILY finasteride 5 mg tablet 5 mg PO DAILY Referrals / Follow Up: Iam Macias MD [Med Staff - Active Staff] - Vitor Calderon PA [Primary Care Provider] - Disposition Disposition (needs filled in before D/C Order can be placed): Home, Self Care
[2024-04-01] MEDS: Cefazolin 2 GM in 0.9% Normal Saline (100mL Bag) 100 ML IV (08:31)
--- NOTE | 2024-04-01 11:09 | PCM.OPRPT ---
Report of Operation Date of Procedure: 04/01/24 Pre-Operative Diagnosis: BPH with obstruction and retention of urine Post-Operative Diagnosis: The same Surgery/Procedure Performed:: Transurethral section of the prostate Description of Surgical Findings:: this is a 78-year-old male who has extremely large prostate he developed retention of urine and has not been able to urinate despite maximal medical therapy with Flomax and Proscar. So today working to proceed with a TURP he does have a very large prostate understands the risk of bleeding incontinence bladder control problems after the surgery no guarantees that the surgery will work the patient was told this preoperatively he understands. Patient was taken back to the operating room at a smooth induction of anesthesia he was placed in dorsolithotomy position. The existing Yeh catheter was removed I then went into the bladder with a 26 Bengali continuous-flow resectoscope and he had a very long prostatic channel very high riding median lobe and high riding bladder neck is a very difficult placement going with the resectoscope at first I then started at the median lobe and worked my way down to the room and then I resected the right lobe of the prostate took extremely long time to resect the right lobe of the prostate and then I resected the left lobe of the prostate and took a very long time to resect the left lobe the prostate and then very carefully resected the apical tissue and then got down to near the sphincter had to be very careful and resecting this tissue after 2-1/2-hour surgery I finally had a wide open channel did a flow test had a good flow and then I cauterized to obtain hemostasis all the chips were removed he had a large amount of tissue removed and sent off as a specimen patient acetic was reversed and taken back to PACU in good condition we will keep overnight for irrigation we will try a voiding trial tomorrow morning. Surgeon: Iam Macias Type of Anesthesia: General Drains: [address] Admit VTE Documentation VTE Present on Admission: No VTE Mechan Device Prophylaxis: SCD's VTE Pharm Prophylaxis ordered?: No
--- NOTE | 2024-04-01 11:21 | PCM.POST.ANE ---
Anesthesia: Postop Eval I Current Vital Signs Temperature: 97.7 F Pulse Rate: 84 Blood Pressure: 93/72 Respiratory Rate: 16 Pulse Ox: 96 Oxygen Delivery Method: Room Air Assessment Airway patent: Yes Spontaneous unlabored respirations: Yes Mental status: Awake and Calm nausea: No Vomiting: No Anesthesia Complication: No Fluid Hydration Crystalloid volume administer (ml): 2,000 Total IV fluid infused: 2,000 Progress Note Anesthesia document: Postop Eval 1 completed: Yes
--- NOTE | 2024-04-01 11:43 | POSTOPAN2_ITS ---
Anesthesia Postop Eval I Sum Postop Eval Completion status Anesthesia document: Postop Eval 1 completed: Yes Anesthesia Postop Eval I Summary Anesthesia Postop Eval I Summary: Anesthesia Postop Eval I: Assessment Summary Airway patent Yes 04/01/24 11:22 AREA OPERATIONS MANAGER.SINDYOBLela Spontaneous unlabored Yes 04/01/24 11:22 AREA OPERATIONS MANAGER.HAL respirations Mental status Awake,Calm 04/01/24 11:22 AREA OPERATIONS MANAGER.SINDYOBLela nausea No 04/01/24 11:22 AREA OPERATIONS MANAGER.HAL Vomiting No 04/01/24 11:22 AREA OPERATIONS MANAGER.HAL Anesthesia Postop Eval I: Fluid Summary Crystalloid volume administer 2,000 04/01/24 11:22 AREA OPERATIONS MANAGER.SINDYOBY (ml) Colloids volume administered ( ml) Blood Product volume administered (ml) Total IV fluid infused 2,000 04/01/24 11:22 AREA OPERATIONS MANAGER.HAL Anesthesia Postop Eval I: Summary Notes Anesthesia Complication No 04/01/24 11:22 AREA OPERATIONS MANAGER.HAL Anesthesia Complication Comment: Post-operative progress note Anesthesia: Postop Eval II Evaluation Mental status: Awake Pain Level: 0 nausea: No Vomiting: No Complications Anesthesia Complication: No
--- NOTE | 2024-04-01 11:43 | PCM.POSTANE2 ---
Anesthesia Postop Eval I Sum Postop Eval Completion status Anesthesia document: Postop Eval 1 completed: Yes Anesthesia Postop Eval I Summary Anesthesia Postop Eval I Summary: Anesthesia Postop Eval I: Assessment Summary Airway patent Yes 04/01/24 11:22 CARDIO TECH.SINDYOBLela Spontaneous unlabored Yes 04/01/24 11:22 CARDIO TECH.HAL respirations Mental status Awake,Calm 04/01/24 11:22 CARDIO TECH.SINDYOBLela nausea No 04/01/24 11:22 CARDIO TECH.HAL Vomiting No 04/01/24 11:22 CARDIO TECH.HAL Anesthesia Postop Eval I: Fluid Summary Crystalloid volume administer 2,000 04/01/24 11:22 CARDIO TECH.SINDYOBY (ml) Colloids volume administered ( ml) Blood Product volume administered (ml) Total IV fluid infused 2,000 04/01/24 11:22 CARDIO TECH.HAL Anesthesia Postop Eval I: Summary Notes Anesthesia Complication No 04/01/24 11:22 CARDIO TECH.HAL Anesthesia Complication Comment: Post-operative progress note Anesthesia: Postop Eval II Evaluation Mental status: Awake Pain Level: 0 nausea: No Vomiting: No Complications Anesthesia Complication: No
[2024-04-01] MEDS: Ketorolac 15 MG/ML Vial IV (12:06)
[2024-04-01] MEDS: 0.9% Normal Saline (1000mL) 1,000 ML 125 ML IV ×2 (13:13→20:53)
--- NOTE | 2024-04-01 15:05 | NURSING ---
Pt up x2 occasions to try to have a BM. After 2nd attempt, pt w/ large clot through the norton tubing. Irrigated several large clots from bladder as well. Changed norton bag, urine light pink at this time.
[2024-04-01] MEDS: Morphine 2 MG/ML Syringe 1 MG IV (17:02)
--- NOTE | 2024-04-01 17:05 | EKG12_ITS ---
Test Reason : CP Blood Pressure : / mmHG Vent. Rate : 088 BPM Atrial Rate : 088 BPM P-R Int : 174 ms QRS Dur : 092 ms QT Int : 378 ms P-R-T Axes : 015 -14 016 degrees QTc Int : 457 ms Normal sinus rhythm Normal ECG When compared with ECG of 01-APR-2024 06:45, MANUAL COMPARISON REQUIRED, DATA IS UNCONFIRMED Confirmed by CECE MONCADA, CHRISTIANO ([id number]), film editor SNEHA ALMARAZ ([id number]) on 04/03/2024 11:34:22 AM Referred By: Iam Macias Confirmed By:CHRISTIANO ZHAO MD
[2024-04-01 18:34] LABS: Troponin-I HS 3 pg/mL (3.0-78.0)
[2024-04-01 20:13] LABS: Troponin-I HS 3 pg/mL (3.0-78.0)
[2024-04-01] MEDS: Docusate Sodium 100 MG Capsule 200 MG PO (20:53)
[2024-04-01] MEDS: Ciprofloxacin 400 MG/200 ML BAG 200 MG IV (20:53)
[2024-04-01] MEDS: Atorvastatin Calcium 10 MG Tablet PO (20:53)
[2024-04-01 21:41] LABS: Troponin-I HS 4 pg/mL (3.0-78.0)
[2024-04-02 00:24] VITALS: BMI 31.3
[2024-04-02 00:25] VITALS: BP 117/66; PULSE 104; RESP 18; TEMP 36.6; O2SAT 98
[2024-04-02 04:30] VITALS: BMI 31.3
[2024-04-02 04:35] VITALS: BP 133/64; PULSE 87; RESP 18; TEMP 36.4; O2SAT 99
[2024-04-02] MEDS: 0.9% Normal Saline (1000mL) 1,000 ML 125 ML IV (04:47)
[2024-04-02] MEDS: Docusate Sodium 100 MG Capsule 200 MG PO (06:04)
[2024-04-02 07:32] LABS: Hematocrit 25.6 % (40-54); Hemoglobin 8.7 g/dL (13.0-16.5); Mean Corpuscular Hgb 31.3 pg (27.0-32.0); Mean Corpuscular Volume 92.1 fL (80-94); Mean Platelet Vol. 10.2 fl (6.2-12.0); Platelet Count 260 K/mm3 (150-450); RBC Distribution Width CV 12.1 % (11.6-14.6); Red Blood Count 2.78 M/mm3 (4.6-6.2); White Blood Count 11.8 K/mm3 (4.4-11.0)
--- NOTE | 2024-04-02 07:46 | PCM.PN.GU ---
Subjective Subjective Status post transurethral resection for a very large prostate, it took 2 hours and a half to do the surgery but this morning the urine is fairly clear he is very comfortable off irrigation so he can remove the catheter for voiding trial if he is able to urinate okay then he can go home. Hemoglobin is down to 8.6 this is definitely due to the surgery in such a large prostate and bleeding from the prostate debilitative the bleeding stopped so he should be able to go home we did check troponins he had atypical chest pain yesterday those are all negative. Home today after he is able to urinate. Objective Data Objective Data Vital Signs: Vital Signs Temp Pulse Resp BP Pulse Ox O2 Del Method 97.6 F L 87 18 133/64 H 99 Room Air 04/02/24 04:35 04/02/24 04:35 04/02/24 04:35 04/02/24 04:35 04/02/24 04:35 04/02/24 04:35 Oxygen Delivery Method Room Air Weight: 96 kg Body Mass Index (BMI) 31.3 Intake & Output: Intake and Output for Last 24 Hours 03/31/24 04/01/24 04/02/24 23:59 23:59 23:59 Intake Total 3268.33 / 3268.33 987.5 / 987.5 Output Total 3150 / 3150 300 / 300 Balance 118.33 / 118.33 687.5 / 687.5 Lab / Micro Data 04/02/24 06:49 04/02/24 06:49 Labs: Laboratory Results - last 24 hr 04/01/24 17:45: Troponin I High Sens 3 04/01/24 19:34: Troponin I High Sens 3 04/01/24 21:04: Troponin I High Sens 4 04/02/24 06:49: WBC 11.8 H, RBC 2.78 L, Hgb 8.7 L, Hct 25.6 L, MCV 92.1, MCH 31.3, MCHC 34.0, RDW Std Deviation 41.0, RDW Coeff of Jorge 12.1, Plt Count 260, MPV 10.2
[2024-04-02 07:47] VITALS: BP 134/71; PULSE 91; RESP 18; TEMP 36.6; O2SAT 97
[2024-04-02 07:53] VITALS: BMI 31.3
[2024-04-02 08:20] LABS: Anion Gap 5 (5-15); BUN 18 mg/dL (7-18); BUN/Creat Ratio 19.1 RATIO (10-20); Calcium,Total 7.8 mg/dL (8.5-10.1); Chloride 111 mmol/L (98-107); Creatinine, Serum 0.94 mg/dL (0.70-1.30); EST Glomerular Filtration Rate 82 mL/min (>60); Est Glom Filt Rate - Afr Amer 99 mL/min (>60); Glucose 135 mg/dL (74-106); Potassium 3.4 mmol/L (3.5-5.1); Sodium Level 140 mmol/L (136-145)
[2024-04-02] MEDS: Ciprofloxacin 400 MG/200 ML BAG 200 MG IV (09:10)
[2024-04-02] MEDS: Pantoprazole Sodium 40 MG Tablet PO ×2 (09:11→09:12)
[2024-04-02 09:12] VITALS: PULSE 80
[2024-04-02] MEDS: Metoprolol Tartrate 25 MG Tablet PO (09:12)
[2024-04-02] MEDS: azaTHIOprine 50 MG Tablet PO (09:12)
[2024-04-02] MEDS: Losartan Potassium 25 MG Tablet PO (09:12)
[2024-04-02] MEDS: hydroCHLOROthiazide 12.5mg 12.5 MG PO (09:12)
--- NOTE | 2024-04-02 09:40 | CASEMGMT ---
DARIUS CM into pt room, pt sitting up in bed in no distress. Pt states he is I in ADLs and does not use an AD at home. Pt denies any homegoing needs and feels his strength is good to return home.
--- NOTE | 2024-04-02 10:49 | CASEMGMT ---
Social Work- Per admitting RN, pt declines information and does not wish to complete directives at this time. MASHA Dunn
--- NOTE | 2024-04-02 11:32 | PHA.DC.MR.R ---
Pharmacy ID Med Reconciliation Pharmacy Service has performed discharge medication reconciliation for this patient. No new medications issued at time of ny medication review. Medications reviewed are from previously reported home medications. The patient's discharge medication list was reviewed for discrepancies and discrepancies were resolved. Medications at Discharge Home Medications hydrochlorothiazide 25 mg tablet 12.5 mg PO DAILY 04/02/22 losartan 25 mg tablet 25 mg PO DAILY 04/02/22 lovastatin 40 mg tablet 40 mg PO QHS 04/02/22 metoprolol tartrate 25 mg tablet 25 mg PO DAILY 04/02/22 omeprazole 40 mg capsule,delayed release 40 mg PO DAILY 04/02/22 omega-3 fatty acids 1,000 mg PO DAILY 10/30/22 pyridoxine (vitamin B6) 50 mg capsule (Vitamin B-6) 50 mg PO DAILY 10/30/22 azathioprine 50 mg tablet 50 mg PO DAILY crohn's #90 tabs 10/07/23 cephalexin 500 mg capsule 500 mg PO BID 03/27/24 fluticasone propionate 50 mcg/actuation nasal spray,suspension 2 spray intranasal DAILY PRN PRN allergy symptoms 03/27/24
== END 2024-04-02 12:00 | disposition home or self-care (01) ==
LOC: SDC 11:51 → MS3 11:51
PROVIDERS: Admitting Provider Urology; PCP Physician Assistant; Referring Provider Urology; Visit Provider Urology
PROC: 0VT08ZZ Resection of Prostate, Via Natural or Artificial Opening Endoscopic (ICD-10-PCS; CPT 52601; principal; 2024-04-01 08:40)
DX: N40.1 Benign prostatic hyperplasia with lower urinary tract symptoms (principal); K50.90 Crohn's disease, unspecified, without complications; E78.00 Pure hypercholesterolemia, unspecified; Z87.891 Personal history of nicotine dependence; N13.8 Other obstructive and reflux uropathy; R33.8 Other retention of urine; Z79.899 Other long term (current) drug therapy; K21.9 Gastro-esophageal reflux disease without esophagitis; I25.10 Atherosclerotic heart disease of native coronary artery without angina pectoris; I10 Essential (primary) hypertension
CPT/HCPCS: 52601; 36415; 80048; 84484; 85027; 88305; 93005; 94668; 96361; 96365; 96366; 96375; 99221; J7030; J7120; G0378; J0744; J2405

== ENCOUNTER → 2024-08-17 | Outpatient (CLI) | payer MEDICARE, SELFPAY ==
[2024-08-17 10:55] LABS: PSA,Total- Diagnostic 2.98 ng/mL (0.0-4.0)
== END | disposition home or self-care (01) ==
LOC: LAB 09:46
PROVIDERS: PCP Physician Assistant; Referring Provider Urology; Visit Provider Urology
DX: R97.20 Elevated prostate specific antigen [PSA] (principal)
CPT/HCPCS: 36415; 84153

== ENCOUNTER → 2025-08-19 | Outpatient (CLI) | payer MEDICARE, SELFPAY ==
[2025-08-19 11:58] LABS: PSA,Total - Annual Screen 3.34 ng/mL (0.02-4.00)
== END | disposition home or self-care (01) ==
LOC: LAB 09:47
PROVIDERS: PCP Physician Assistant; Referring Provider Urology; Visit Provider Urology
DX: Z12.5 Encounter for screening for malignant neoplasm of prostate (principal)
CPT/HCPCS: 36415; 84153; G0103